=== PATIENT | male | born 1975 | race Caucasian/White ===

== ENCOUNTER → 2017-02-22 | Outpatient (CLI) | payer BC ==
--- NOTE | 2017-02-25 14:58 | SLEEPHOME ---
DATE OF PROCEDURE: 02/22/2017 ORDERED BY: Katalina Graves NP Diagnostic home sleep testing was performed due to concern for the obstructive sleep apnea syndrome. For testing, a NOX-T3 respiratory monitoring device was used. Continuous record was made of pulse, oxygen saturation, airflow, chest and abdominal strain, and body position. 6 hours and 11 minutes of data were reviewed. Of these, 6 hours and 6 minutes were marked as time in bed. During the interval marked time in bed, there were 55 respiratory events identified of 10 seconds in duration or greater for a respiratory event index of 9.0. The events were primarily obstructive. Baseline oxygen saturation 93%, lowest oxygen saturation 87%. Pulse rate averaged 56 beats per minute. Pulse rate ranged 46 to 110. Testing was performed in both the supine and non-supine positions. IMPRESSION: Abnormal home sleep testing with repetitive respiratory events and oxygen desaturations to 87% with a respiratory event index of 9 is consistent with the obstructive sleep apnea syndrome. RECOMMENDATION: The patient should be encouraged to undergo formal sleep evaluation with in laboratory pressure titration.
== END ==
LOC: M SLEEP HO 02-15 09:18
PROVIDERS: ATTEND Nurse Practitioner Adult Health
DX: G47.30 Sleep apnea, unspecified (principal)

== ENCOUNTER → 2017-03-01 | Outpatient (REF) | payer BC | LOC: M SFHCPLAZ 08:21 | PROVIDERS: ATTEND Family Medicine | DX: G47.30 Sleep apnea, unspecified (principal); E66.9 Obesity, unspecified; R63.5 Abnormal weight gain ==

== ENCOUNTER → 2017-06-20 | Outpatient (REF) | payer BC ==
[2017-06-20 11:04] LABS: ALBUMIN 3.7 GM/DL (3.2-5.2); ALBUMIN/GLOBULIN RATIO 0.93 (1.00-1.93); ALKALINE PHOSPHATASE 58 U/L (45-117); ALT/SGPT 41 U/L (12-78); ANION GAP 7 MEQ/L (8-16); AST/SGOT 26 U/L (15-37); BILIRUBIN,TOTAL 0.5 MG/DL (0.2-1.0); BLOOD UREA NITROGEN 18 MG/DL (7-18); CARBON DIOXIDE LEVEL 28 MEQ/L (21-32); CHLORIDE LEVEL 107 MEQ/L (98-107); CHOLESTEROL LEVEL 203 MG/DL (<200); CREATININE FOR GFR 0.99 MG/DL (0.70-1.30); FREE T4 0.91 NG/DL (0.76-1.46); GLOMERULAR FILTRATION RATE > 60.0 (>60); GLUCOSE, FASTING 97 MG/DL (70-105); POTASSIUM SERUM 4.4 MEQ/L (3.5-5.1); SODIUM LEVEL 142 MEQ/L (136-145); TOTAL PROTEIN 7.7 GM/DL (6.4-8.2); TRIGLYCERIDES LEVEL 237 MG/DL (<150)
== END ==
LOC: M SFHCPLAZ 08:06
PROVIDERS: ATTEND Family Medicine
DX: E66.9 Obesity, unspecified (principal); R63.5 Abnormal weight gain

== ENCOUNTER → 2017-08-14 | Outpatient (REF) | payer BC ==
[2017-08-14 13:24] LABS: PERCENT SATURATION 40.1 % (19.7-50.0)
== END ==
LOC: M SFHCPLAZ 12:05
PROVIDERS: ATTEND Family Medicine
DX: R79.89 Other specified abnormal findings of blood chemistry (principal); R53.82 Chronic fatigue, unspecified; R00.0 Tachycardia, unspecified

== ENCOUNTER → 2017-08-27 | Outpatient (REF) | payer BC ==
[2017-08-27 21:17] LABS: BASO # 0.1 10^3/uL (0.0-0.2); BASO % 0.8 % (0.0-1.0); EOS # 0.2 10^3/uL (0.0-0.50); EOS % 1.7 % (0.0-3.0); IMMATURE GRANULOCYTE % 0.2 % (0-0); MEAN CORPUSCULAR HEMOGLOBIN 29.1 pg (27.0-33.0); MEAN CORPUSCULAR HGB CONC 34.5 g/dl (32.0-36.5); MEAN CORPUSCULAR VOLUME 84.4 fl (80.0-96.0); MONO # 0.8 10^3/uL (0.0-0.8); MONO % 8.8 % (0.0-5.0); NEUTROPHILS # 3.6 10^3/uL (1.8-7.7); NEUTROPHILS % 41.5 % (36.0-66.0); PLATELET COUNT, AUTOMATED 311 10^3/uL (150-450); RED CELL DISTRIBUTION WIDTH 12.7 % (11.5-14.5); WHITE BLOOD COUNT 8.6 10^3/uL (4.0-10.0)
[2017-08-27 21:34] LABS: ALBUMIN 4.1 GM/DL (3.2-5.2); ALBUMIN/GLOBULIN RATIO 0.93 (1.00-1.93); ALKALINE PHOSPHATASE 61 U/L (45-117); ALT/SGPT 54 U/L (12-78); ANION GAP 9 MEQ/L (8-16); AST/SGOT 31 U/L (7-37); BILIRUBIN,TOTAL 0.5 MG/DL (0.2-1.0); BLOOD UREA NITROGEN 14 MG/DL (7-18); CALCIUM LEVEL 8.9 MG/DL (8.5-10.1); CARBON DIOXIDE LEVEL 27 MEQ/L (21-32); CHLORIDE LEVEL 105 MEQ/L (98-107); CREATININE FOR GFR 0.94 MG/DL (0.70-1.30); GLOMERULAR FILTRATION RATE > 60.0 (>60); GLUCOSE, FASTING 86 MG/DL (70-105); POTASSIUM SERUM 4.4 MEQ/L (3.5-5.1); SODIUM LEVEL 141 MEQ/L (136-145); TOTAL PROTEIN 8.5 GM/DL (6.4-8.2)
== END ==
LOC: M SFHCLERA 19:18
PROVIDERS: ATTEND Dermatology
DX: L40.0 Psoriasis vulgaris (principal)

== ENCOUNTER → 2017-08-29 | Outpatient (REF) | payer BC ==
[2017-08-29 11:04] LABS: FREE T4 0.88 NG/DL (0.76-1.46)
[2017-08-30 12:23] LABS: ALBUMIN % 54.9 % (55.8-66.1); GAMMA GLOBULIN % 18.6 % (11.1-18.8)
[2017-08-30 12:25] LABS: ALBUMIN 4.39 GM/DL (3.29-5.55)
== END ==
LOC: M SFHCPLAZ 09:00
PROVIDERS: ATTEND Family Medicine
DX: R53.82 Chronic fatigue, unspecified (principal)

== ENCOUNTER → 2017-09-13 | Outpatient (REF) | payer BC | LOC: M LAB REF 16:12 | DX: J02.9 Acute pharyngitis, unspecified (principal) | CPT/HCPCS: 87081 ==

== ENCOUNTER → 2017-11-01 | Outpatient (REF) | payer BC | LOC: M SFHCPLAZ 13:15 | DX: R53.82 Chronic fatigue, unspecified (principal) ==

== ENCOUNTER → 2017-11-02 | Outpatient (REF) | payer BC ==
[2017-11-02 12:40] LABS: CORTISOL AM 5.6 UG/DL (4.3-22.4)
[2017-11-02 12:51] LABS: TOTAL PROTEIN 7.6 GM/DL (6.4-8.2)
[2017-11-06 10:25] LABS: ALBUMIN % 55.3 % (55.8-66.1); ALPHA-1-GLOBULIN % 3.6 % (2.9-4.9); ALPHA-1-GLOBULINS 0.27 GM/DL (0.17-0.41); ALPHA-2-GLOBULINS % 8.7 % (7.1-11.8); BETA-1-GLOBULINS % 6.2 % (4.7-7.2); BETA-2-GLOBULINS % 7.9 % (3.2-6.5); GAMMA GLOBULIN % 18.3 % (11.1-18.8)
[2017-11-06 10:26] LABS: ALPHA-2-GLOBULINS 0.66 GM/DL (0.42-0.99); BETA-1-GLOBULINS 0.47 GM/DL (0.28-0.60); GAMMA GLOBULINS 1.39 GM/DL (0.65-1.58)
== END ==
LOC: M SFHCPLAZ 09:56
DX: R53.82 Chronic fatigue, unspecified (principal)
CPT/HCPCS: 84165

== ENCOUNTER → 2017-11-08 | Outpatient (CLI) | payer BC | LOC: M RAD 08:16 | DX: K40.90 Unilateral inguinal hernia, without obstruction or gangrene, not specified as recurrent (principal); N50.3 Cyst of epididymis | CPT/HCPCS: 76870 ==

== ENCOUNTER → 2017-11-21 | Outpatient (REF) | payer BC ==
[2017-11-21 13:02] LABS: TOTAL PROTEIN,RANDOM URINE 24.6 MG/DL (0.0-12.0)
== END ==
LOC: M SFHCPLAZ 11:58
DX: R53.82 Chronic fatigue, unspecified (principal)
CPT/HCPCS: 86335

== ENCOUNTER → 2017-11-21 | Outpatient (REF) | payer BC | LOC: M SFHCPLAZ 08:46 | DX: N39.0 Urinary tract infection, site not specified (principal) ==

== ENCOUNTER → 2017-12-05 | Outpatient (REF) | payer BC | LOC: M SFHCPLAZ 09:30 | DX: N39.0 Urinary tract infection, site not specified (principal); Z53.9 Procedure and treatment not carried out, unspecified reason ==

== ENCOUNTER → 2017-12-05 | Outpatient (REF) | payer BC | LOC: M SFHCPLAZ 11:23 | DX: R53.82 Chronic fatigue, unspecified (principal) | CPT/HCPCS: 36415; 86334 ==

== ENCOUNTER → 2018-04-10 | Outpatient (REF) | payer BC ==
[2018-04-10 20:13] LABS: BASO # 0.1 10^3/uL (0.0-0.2); BASO % 0.6 % (0.0-1.0); EOS # 0.2 10^3/uL (0.0-0.50); HEMATOCRIT 42.3 % (42.0-52.0); IMMATURE GRANULOCYTE % 0.4 % (0-3.0); LYMPH # 2.8 10^3/uL (1.5-4.5); LYMPH % 35.4 % (24.0-44.0); MEAN CORPUSCULAR HEMOGLOBIN 29.9 pg (27.0-33.0); MEAN CORPUSCULAR HGB CONC 35.5 g/dl (32.0-36.5); MEAN CORPUSCULAR VOLUME 84.3 fl (80.0-96.0); MONO # 0.8 10^3/uL (0.0-0.8); MONO % 10.5 % (0.0-5.0); NEUTROPHILS # 4.1 10^3/uL (1.8-7.7); NEUTROPHILS % 51.1 % (36.0-66.0); PLATELET COUNT, AUTOMATED 294 10^3/uL (150-450); RED BLOOD COUNT 5.02 10^6/uL (4.30-6.10); RED CELL DISTRIBUTION WIDTH 12.5 % (11.5-14.5)
[2018-04-10 20:30] LABS: ALBUMIN 3.7 GM/DL (3.2-5.2); ALBUMIN/GLOBULIN RATIO 0.88 (1.00-1.93); ALKALINE PHOSPHATASE 66 U/L (45-117); ALT/SGPT 58 U/L (12-78); ANION GAP 8 MEQ/L (8-16); AST/SGOT 35 U/L (7-37); BILIRUBIN,TOTAL 0.4 MG/DL (0.2-1.0); BLOOD UREA NITROGEN 15 MG/DL (7-18); CALCIUM LEVEL 8.6 MG/DL (8.5-10.1); CARBON DIOXIDE LEVEL 26 MEQ/L (21-32); CHLORIDE LEVEL 108 MEQ/L (98-107); CREATININE FOR GFR 0.98 MG/DL (0.70-1.30); GLOMERULAR FILTRATION RATE > 60.0 (>60); GLUCOSE, FASTING 102 MG/DL (70-100); POTASSIUM SERUM 4.1 MEQ/L (3.5-5.1); SODIUM LEVEL 142 MEQ/L (136-145); TOTAL PROTEIN 7.9 GM/DL (6.4-8.2)
== END ==
LOC: M SFHCLERA 16:06
DX: L40.0 Psoriasis vulgaris (principal)

== ENCOUNTER → 2018-09-24 | Outpatient (REF) | payer BC | LOC: M LAB REF 11:54 | PROVIDERS: ATTEND Physician Assistant | DX: J02.9 Acute pharyngitis, unspecified (principal) ==

== ENCOUNTER → 2018-10-28 | Outpatient (REF) | payer BC ==
[2018-10-28 19:43] LABS: INFLUENZA A AMPLIFICATION POSITIVE (NEGATIVE); INFLUENZA B AMPLIFICATION NEGATIVE (NEGATIVE)
== END ==
LOC: M LAB REF 18:54
PROVIDERS: ATTEND Physician Assistant Medical
DX: J11.1 Influenza due to unidentified influenza virus with other respiratory manifestations (principal)

== ENCOUNTER 2018-11-04 13:32 | Day surgery (SDC) | payer BC ==
[~2018-11-04] VITALS: Ht 172.7 cm; Wt 117.9 kg
[2018-11-04] MEDS ORDERED: ROPIvacaine 0.5% 30 ML INJECTION (J2795 PER 1MG) ONE (13:33)
[2018-11-04] MEDS ORDERED: LIDOCAINE 1% MDV 20ML VIAL ONE (13:33)
[2018-11-04] MEDS ORDERED: dexameTHASONE 10 MG/1 ML VIAL PRES.FREE (J1100) ONE (13:33)
[2018-11-04] MEDS ORDERED: EPINEPHrine INJ 1 MG/ML 1ML AMP As Ordered ONE (13:35)
[2018-11-04] MEDS ORDERED: LIDOCAINE 1% MDV 20ML VIAL As Ordered ONE (13:35)
[2018-11-04] MEDS ORDERED: ceFAZolin 2 GM/D5W 50 ML IV BAG (J0690 PER 500MG) As Ordered ONE (13:54)
[2018-11-04] MEDS ORDERED: LR 1,000 ML IV ONE (14:00)
[2018-11-04] MEDS ORDERED: PROT20TA11 PO (14:17)
[2018-11-04] MEDS ORDERED: HUMERA (14:17)
[2018-11-04] MEDS ORDERED: LORA0.5T11 PO (14:17)
[2018-11-04] MEDS ORDERED: PROPOFOL 200 MG/20 ML VIAL As Ordered ONE ×2 (14:23→16:33)
[2018-11-04] MEDS ORDERED: ONDANSETRON 4MG/2ML VIAL (J2405) As Ordered ONE ×2 (14:23→16:58)
[2018-11-04] MEDS ORDERED: dexameTHASONE 4 MG/ML 1ML VIAL (J1100) As Ordered ONE (14:23)
[2018-11-04] MEDS ORDERED: LIDOCAINE 2% INJ 100 MG/5 ML SDV (FOR ANES.) As Ordered ONE (14:23)
[2018-11-04] MEDS ORDERED: fentaNYL 250 MCG/5 ML INJECTION (J3010) As Ordered ONE (14:23)
[2018-11-04] MEDS ORDERED: MIDAZOLAM INJ 2 MG/2 ML VIAL (J2250) As Ordered ONE ×3 (14:24→15:17)
[2018-11-04] MEDS ORDERED: ROCURONIUM BROMIDE 50 MG/5 ML VIAL As Ordered ONE ×2 (14:26→17:12)
[2018-11-04] MEDS ORDERED: fentaNYL 100 MCG/2 ML INJECTION (J3010) As Ordered ONE (14:47)
[2018-11-04] MEDS: fentaNYL 100 MCG/2 ML INJECTION (J3010) IV SCH ×2 (15:13→15:15)
[2018-11-04] MEDS: MIDAZOLAM INJ 2 MG/2 ML VIAL (J2250) IV SCH ×2 (15:14→15:15)
[2018-11-04] MEDS ORDERED: MIDAZOLAM INJ 2 MG/2 ML VIAL (J2250) IV ONE (15:45)
[2018-11-04] MEDS ORDERED: PHENYLephrine HCL 500 MCG/5 ML (100MCG/ML) SYRINGE (J2370) As Ordered ONE (15:56)
[2018-11-04] MEDS ORDERED: KETOROLAC 60 MG/2 ML VIAL (J1885) As Ordered ONE (16:52)
[2018-11-04] MEDS ORDERED: NEOSTIGMINE 10 MG/10 ML VIAL (J2710) As Ordered ONE (16:52)
[2018-11-04] MEDS ORDERED: GLYCOPYRROLATE INJ 0.2 MG/ML 2 ML VIAL As Ordered ONE (16:52)
[2018-11-04] MEDS ORDERED: HYDROmorphone HCL 2 MG/ML 1ML VIAL (J1170) As Ordered ONE (16:53)
[2018-11-04] MEDS ORDERED: ESMOLOL INJ 100MG/10ML VIAL As Ordered ONE (17:32)
[2018-11-04] MEDS ORDERED: METOPROLOL 5 MG/5 ML VIAL As Ordered ONE (18:18)
[2018-11-04] MEDS: fentaNYL 100 MCG/2 ML INJECTION (J3010) IV PRN ×3 (19:50→20:08)
[2018-11-04] MEDS ORDERED: HYDROMORPHONE HCL 0.5 MG/ 0.5 ML SYRINGE (J1170 PER 1) As Ordered ONE ×2 (20:13→20:46)
[2018-11-04] MEDS: HYDROMORPHONE HCL 0.5 MG/ 0.5 ML SYRINGE (J1170 PER 1) IV PRN ×7 (20:14→21:14)
[2018-11-04] MEDS ORDERED: LR 1,000 ML IV SCH ×2 (20:15)
[2018-11-04] MEDS ORDERED: ONDANSETRON 4MG/2ML VIAL (J2405) IV PRN (20:15)
[2018-11-04] MEDS: PERCOCET 5MG/325MG TAB PO PRN ×2 (20:34→21:32)
[2018-11-04] MEDS ORDERED: diphenhydrAMINE INJ 50MG/ML VIAL (J1200) As Ordered ONE (20:41)
[2018-11-04] MEDS ORDERED: diphenhydrAMINE INJ 50MG/ML VIAL (J1200) IV SCH (21:00)
[2018-11-04] MEDS ORDERED: METOCLOPRAMIDE INJ 10MG/2ML VIAL (J2765) As Ordered ONE (21:07)
[2018-11-04] MEDS ORDERED: METOCLOPRAMIDE INJ 10MG/2ML VIAL (J2765) IV SCH (21:15)
[2018-11-04] MEDS ORDERED: PERCOCET 5MG/325MG TAB As Ordered ONE (21:30)
[2018-11-04] MEDS ORDERED: oxyCODONE 5MG TAB PO PRN (22:30)
[2018-11-04] MEDS ORDERED: MORPHINE 4 MG/ML 1ML VIAL/SYRINGE (J2270) IV PRN (22:30)
[2018-11-04 23:00] VITALS: BP 168/98
[2018-11-04 23:30] VITALS: BP 176/104
[2018-11-05 00:03] VITALS: O2SAT 91
[2018-11-05 00:30] VITALS: BP 173/102
--- NOTE | 2018-11-05 01:14 | REP ---
Clinical: Hypoxia and desaturations. . Comparison: 02/22/2012 . Findings: The mediastinum and cardiac silhouette are stable and within normal limits for portable technique. The lung saba are clear without acute consolidation, effusion, or pneumothorax. Skeletal structures are intact. Impression: No acute cardiopulmonary process appreciated. Electronically Signed by Giovanni Landon MD 11/05/2018 01:06 A
[2018-11-05] MEDS ORDERED: KETOROLAC 30 MG/ML VIAL (J1885) IV PRN (01:15)
[2018-11-05 01:30] VITALS: BP 160/100
[2018-11-05 02:00] VITALS: BP 168/101
[2018-11-05] MEDS: oxyCODONE 5MG TAB PO PRN ×2 (05:45→10:13)
[2018-11-05 06:00] VITALS: BP 149/71
[2018-11-05] MEDS ORDERED: LR 1,000 ML IV ONE (06:00)
--- NOTE | 2018-11-05 20:44 | RO ---
DATE OF PROCEDURE: 11/04/2018 PREOPERATIVE DIAGNOSES: 1. Right shoulder massive rotator cuff tear. 2. Right shoulder possible superior labral tear. 3. Right shoulder impingement. POSTOPERATIVE DIAGNOSES: 1. Right shoulder massive rotator cuff tear. 2. Right type 2 SLAP tear with degenerative anterior labral tearing. 3. Right shoulder arthritis. 4. Right shoulder impingement. PROCEDURES: 1. Right shoulder arthroscopic rotator cuff repair. 2. Right shoulder open subpectoral biceps tenodesis. 3. Right shoulder arthroscopic chondroplasty, labral debridement and subacromial decompression. SURGEON: Dr. Deion Alaniz HEALTH SERVICES ADMINISTRATOR: PAULINA Cortés ANESTHESIA: General with preoperative nerve block. IV FLUIDS: Lactated Ringer's. ESTIMATED BLOOD LOSS: 10 mL. IMPLANTS: Arthrex 4.75 mm PEEK SwiveLock anchor times five and Arthrex proximal biceps button times one. CLOSURE: Nylon and Monocryl. DESCRIPTION OF PROCEDURE: The patient was identified in preoperative holding area. The right shoulder was marked by myself. The patient had maintained active forward flexion 130 degrees. He had a preoperative nerve block with anesthesia. He was then brought to the operating room, placed supine on a well-padded operating room (OR) table. General anesthesia was induced. Exam under anesthesia revealed 180 degrees of forward flexion, 90 of external rotation with the arm at his side. No increased anterior-posterior translation. He was placed into the left side down lateral decubitus position with an axillary roll, all bony prominences well padded, and he had bilateral Venodyne boots for deep vein thrombosis (DVT) prophylaxis. He received appropriate IV antibiotics within 1 hour of incision. The right arm was placed into the Arthrex STaR Sleeve lateral decubitus traction device with 10 pounds of traction. The right shoulder was then prepped and draped in the normal sterile fashion with Chloraprep. Prior to incision, time-out was performed per hospital protocol. The right shoulder was insufflated with lactated Ringer's. Standard posterior viewing portal made with #11 blade. 30-degree arthroscope was introduced into the joint and diagnostic arthroscopy revealed grade 2 chondromalacia in the glenoid and humeral head diffusely. There was tearing of both the anterior and superior labrum. The subscapularis appeared intact. The teres minor was intact. There was a full thickness tear of the supraspinatus extending into the infraspinatus. This was significantly retracted. An anterior working portal was established through the rotator interval and on probing of the superior labrum, there was an unstable type 2 SLAP tear. The entire superior labrum was lifted off of the glenoid and the anchor was unstable. I performed a labral debridement of both the anterior and superior labrum with the shaver and a chondroplasty with the shaver. I then performed a tenotomy of the long head of the biceps with a meniscal punch. The subscapularis was carefully inspected. There was some tendinopathy in the very upper border. However, I did not appreciate any tearing, and there was no lift off from the lesser tuberosity doing the posterior lever push maneuver. I then proceeded with an open subpectoral biceps tenodesis. Raquel Potts was present for the entire procedure including patient positioning and draping, holding the arthroscope, holding retractors, assisting with the whipstitch, placement of anchors and retrieving sutures. Incision made with a #15 blade just lateral to the axilla. Dissection down to the biceps fascia which was opened carefully with Metzenbaum scissors. Long head of the biceps tendon was identified and retrieved with a right angle clamp. A running locking whipstitch placed with the FiberLoop starting at the muscle tendon junction and extending proximally. Sutures then loaded through the biceps button per routine. Cautery used to terrence the proposed drill hole site, and the sutures approximated to the cautery terrence and this was found to nicely restore the resting tension. A unicortical drill hole was made with a spade tip drill bit just proximal to lower edge of the pec major tendon within the bicipital groove. Irrigation to remove bony debris. Button was placed through the drill hole, sutures were tensioned which flipped the button and then docked the tendon against the bicipital groove nicely. Curved-free needle was used to pass one limb of suture back through the tendon to lock the construct in place. Knots were tied by hand. This nicely restored the resting tension. I then extensively irrigated the incision, closed with #2-0 Vicryl for deeper fascial closure, then #2-0 Vicryl, running, #3-0 Monocryl. Steri-Strips placed at the end of the case. The arthroscope was placed back into the joint, again reinspected the subscapularis. No tearing. No lift off. No repair indicated. With the arthroscope in the subacromial space, there was then appreciated the massive tear. The entire supraspinatus and anterior infraspinatus had torn off and retracted. The supraspinatus was retracted medial to the glenoid. With the lateral working portal established, shaver and cautery used to clear soft tissue off of the greater tuberosity. Curette used to create a bleeding surface. A traction stitch was placed, a #2 FiberWire with the Scorpion and as my contact center assistant held traction, the cautery and shaver then used to perform releases superior and inferior to the tendon. Switching stick was also passed inferior to the tendon for further release. The posterior portion of the tear was reduced nicely to the tuberosity. Anteriorly, it would not reach lateral to the articular cartilage. I performed a modified anterior interval release with the radiofrequency cautery, which significantly improved the excursion and this would not reach over to the footprint. The cuff grasper was used to reduce the tendon to the tuberosity to determine the appropriate placement for anchors. Bursectomy was performed with shaver and cautery. Then, placed a total of three 4.75 mm PEEK SwiveLock anchors, all preloaded with tape. The posterior anchor was placed first just off the articular surface, that was passed with the Scorpion through the far posterior portion of the tear. The middle anchor was then placed, the sutures were cut and so they were passed individually in a horizontal mattress fashion. A third SwiveLock anchor was placed in the anterior portion of the tuberosity; those were also passed in a horizontal mattress fashion. The far posterior sutures, traction suture and one of the middle tapes were then brought out the lateral portal through a cannula. They were placed through a 4.75 mm PEEK SwiveLock anchor, and the cannula was used to ensure there was enough lateral excursion on the tendon and to determine the appropriate position. Punch used to create a socket in the greater tuberosity. The sutures were tensioned, anchor was docked and then inserted by hand with excellent fixation. This nicely restored the posterior half of the rotator cuff tear. The shoulder was internally and externally rotated and now the cuff moved nicely with the humeral head. Next, the far anterior tape sutures, one of the central tape sutures and an additional FiberWire suture that I placed with the Scorpion were then brought out the lateral portal, placed through another 4.75 mm PEEK SwiveLock anchor, a socket was created, the anchor was docked, sutures tensioned. [place] inserted by hand with excellent fixation. This nicely restored the anterior portion of the tear. The far anterior portion of the supraspinatus did reach over to the greater tuberosity, so that the humeral head was covered. However, there was not a significant amount of lateral excursion beyond that. The shoulder was internally and externally rotated, the tendon moved nicely as a unit with the humeral head. There was no exposed articular cartilage. Shoulder was irrigated and drained. Portals closed with nylon suture. Bulky sterile dressing applied. The patient was carefully placed into the sling, extubated, transferred to the post-anesthesia care unit (PACU) in stable condition.
== END 2018-11-05 11:20 | disposition home or self-care (01) ==
LOC: M SDC 13:32 → M MS5PR 23:20 → M SDC 11-05 11:20
PROVIDERS: ATTEND Orthopaedic Surgery
DX: M75.121 Complete rotator cuff tear or rupture of right shoulder, not specified as traumatic (principal); S43.431A Superior glenoid labrum lesion of right shoulder, initial encounter; M19.011 Primary osteoarthritis, right shoulder; M75.41 Impingement syndrome of right shoulder; F41.9 Anxiety disorder, unspecified; K21.9 Gastro-esophageal reflux disease without esophagitis; G47.33 Obstructive sleep apnea (adult) (pediatric); Z88.1 Allergy status to other antibiotic agents; X58.XXXA Exposure to other specified factors, initial encounter; Y93.9 Activity, unspecified; Y92.9 Unspecified place or not applicable; Y99.9 Unspecified external cause status
CPT/HCPCS: 23430; 29826; 29827; 71045; 88304; C1713; J0690; J1100; J1170; J1200; J1885; J2250; J2370; J2405; J2710; J2765; J2795; J3010

== ENCOUNTER → 2019-01-06 | Outpatient (CLI) | payer BC ==
[~2019-01-06] MED LIST: HUMERA; LORA0.5T11 PO; PROT20TA11 PO
[2019-01-06 17:17] LABS: BASO # 0.1 10^3/uL (0.0-0.2); BASO % 0.6 % (0.0-1.0); EOS # 0.2 10^3/uL (0.0-0.50); EOS % 2.2 % (0.0-3.0); HEMATOCRIT 46.7 % (42.0-52.0); HEMOGLOBIN 15.6 g/dl (13.5-17.5); LYMPH # 3.5 10^3/uL (1.5-4.5); LYMPH % 44.8 % (24.0-44.0); MEAN CORPUSCULAR HEMOGLOBIN 29.1 pg (27.0-33.0); MEAN CORPUSCULAR HGB CONC 33.4 g/dl (32.0-36.5); MONO # 0.7 10^3/uL (0.0-0.8); MONO % 8.7 % (0.0-5.0); NEUTROPHILS # 3.4 10^3/uL (1.8-7.7); NEUTROPHILS % 43.6 % (36.0-66.0); PLATELET COUNT, AUTOMATED 305 10^3/uL (150-450); RED BLOOD COUNT 5.37 10^6/uL (4.30-6.10); WHITE BLOOD COUNT 7.8 10^3/uL (4.0-10.0)
[2019-01-06 17:22] LABS: ALT/SGPT 55 U/L (12-78); BILIRUBIN,TOTAL 0.4 MG/DL (0.2-1.0); BLOOD UREA NITROGEN 12 MG/DL (7-18); CALCIUM LEVEL 9.1 MG/DL (8.5-10.1); CARBON DIOXIDE LEVEL 28 MEQ/L (21-32); CHLORIDE LEVEL 107 MEQ/L (98-107); CHOLESTEROL LEVEL 222 MG/DL (<200); CHOLESTEROL RISK RATIO 4.826 (<5); CREATININE FOR GFR 0.95 MG/DL (0.70-1.30); GLOMERULAR FILTRATION RATE > 60.0 (>60); GLUCOSE, FASTING 103 MG/DL (70-100); HDL CHOLESTEROL 46 MG/DL (>40); LDL CHOLESTEROL 109 MG/DL (<100); NON-HDL-C 176 MG/DL; POTASSIUM SERUM 3.8 MEQ/L (3.5-5.1); SODIUM LEVEL 140 MEQ/L (136-145); TOTAL PROTEIN 8.1 GM/DL (6.4-8.2); TRIGLYCERIDES LEVEL 335 MG/DL (<150)
[2019-01-06 17:45] LABS: HEMOGLOBIN A1c 5.9 %
== END ==
LOC: M WUC 12:47
PROVIDERS: ATTEND Family Medicine
DX: Z13.1 Encounter for screening for diabetes mellitus (principal); E78.5 Hyperlipidemia, unspecified; L40.9 Psoriasis, unspecified; F10.19 Alcohol abuse with unspecified alcohol-induced disorder

== ENCOUNTER → 2019-11-10 | Outpatient (REF) | payer OTHER ==
[~2019-11-10] MED LIST changes: +ALBU8.5H; +AUGM875T28 PO; +HUMI40KI2; -LORA0.5T11 PO; +LORA0.5T5 PO; +NAPR-837 PO
[2019-11-10 18:17] LABS: APPEARANCE, URINE CLEAR (CLEAR); BACTERIA, URINE AUTO NEGATIVE (NEGATIVE); BILIRUBIN, URINE AUTO NEGATIVE (NEGATIVE); BLOOD, URINE BLOOD NEGATIVE (NEGATIVE); COLOR, URINE YELLOW (YELLOW); GLUCOSE, URINE (UA) AUTO NEGATIVE (NEGATIVE); KETONE, URINE AUTO TRACE mg/dL (NEGATIVE); LEUKOCYTE ESTERASE, URINE AUTO NEGATIVE (NEGATIVE); MUCUS, URINE SMALL (NEGATIVE); NITRITE, URINE AUTO NEGATIVE (NEGATIVE); PROTEIN, URINE AUTO NEGATIVE (NEGATIVE); RBC, URINE AUTO 3 /HPF (0-3); SQUAMOUS EPITHELIAL CELL UR AU 0 /HPF (0-6); UROBILINOGEN, URINE AUTO 0.2 mg/dL (0.0-2.0); WBC, URINE AUTO 1 /HPF (0-3)
[2019-11-10 18:27] LABS: HEMOGLOBIN A1c 5.6 %
[2019-11-10 18:29] LABS: MALB URINE SIEMENS 9.4 MG/L; MAU/CREAT RATIO 6.4 MCG/MG (0.0-30.0)
[2019-11-10 18:36] LABS: ALBUMIN 4.1 GM/DL (3.2-5.2); ALT/SGPT 37 U/L (12-78); BILIRUBIN,TOTAL 0.5 MG/DL (0.2-1.0); BLOOD UREA NITROGEN 14 MG/DL (7-18); CALCIUM LEVEL 9.4 MG/DL (8.5-10.1); CARBON DIOXIDE LEVEL 28 MEQ/L (21-32); CHLORIDE LEVEL 104 MEQ/L (98-107); CHOLESTEROL LEVEL 216 MG/DL (<200); CHOLESTEROL RISK RATIO 4.153 (<5); CREATININE FOR GFR 0.93 MG/DL (0.70-1.30); GLOMERULAR FILTRATION RATE > 60.0 (>60); GLUCOSE, FASTING 81 MG/DL (70-100); HDL CHOLESTEROL 52 MG/DL (>40); LDL CHOLESTEROL 134 MG/DL (<100); NON-HDL-C 164 MG/DL; POTASSIUM SERUM 4.1 MEQ/L (3.5-5.1); SODIUM LEVEL 139 MEQ/L (136-145); TOTAL PROTEIN 8.5 GM/DL (6.4-8.2); TRIGLYCERIDES LEVEL 150 MG/DL (<150)
== END ==
LOC: M SFHCPLAZ 14:43
PROVIDERS: ATTEND Family Medicine
DX: F10.19 Alcohol abuse with unspecified alcohol-induced disorder (principal); I10 Essential (primary) hypertension; R73.03 Prediabetes

== ENCOUNTER → 2019-11-27 | Outpatient (REF) | payer OTHER, SELFPAY ==
[2019-11-27 17:57] LABS: FREE T4 1.1 NG/DL (0.76-1.46); THYROID STIMULATING HORMONE 1.65 uIU/ML (0.358-3.740)
== END ==
LOC: M SFHCPLAZ 14:37
DX: F41.9 Anxiety disorder, unspecified (principal)

== ENCOUNTER → 2019-12-02 | Outpatient (CLI) | payer OTHER, SELFPAY ==
--- NOTE | 2019-12-02 07:46 | REP ---
Clinical: Fatty liver. Technique: Real time caraballo scale ultrasound examination using curved array transducer. Findings: Liver is increased echogenicity with poor through transmission suggesting fatty infiltration. No obvious focal hepatic lesion identified. The pancreas is incompletely evaluated due to interposed bowel gas and poor through transmission. Gallbladder demonstrates mobile gallstones without wall thickening or pericholecystic fluid. No obvious biliary ductal dilatation is appreciated although the common bile duct is not identified. The right kidney is normal in reniform shape without hydronephrosis and measures 11.8 x 5.0 x 5.3 cm. No ascites in the visualized right upper quadrant. Impression: 1. Hepatic steatosis. No obvious focal hepatic lesion. 2. Cholelithiasis without evidence for acute cholecystitis. Electronically Signed by Giovanni Landon MD 12/02/2019 07:38 A
== END ==
LOC: M RAD 07:09
PROVIDERS: ATTEND Student in an Organized Health Care Education/Training Program
DX: K76.0 Fatty (change of) liver, not elsewhere classified (principal); K80.20 Calculus of gallbladder without cholecystitis without obstruction

== ENCOUNTER → 2020-10-07 | Outpatient (CLI) | payer OTHER ==
[2020-10-07 13:13] LABS: HEMATOCRIT 49.4 % (42.0-52.0); HEMOGLOBIN 16.7 g/dl (13.5-17.5); MEAN CORPUSCULAR HEMOGLOBIN 28.4 pg (27.0-33.0); MEAN CORPUSCULAR HGB CONC 33.8 g/dl (32.0-36.5); PLATELET COUNT, AUTOMATED 342 10^3/uL (150-450); RED BLOOD COUNT 5.88 10^6/uL (4.30-6.10); WHITE BLOOD COUNT 9.8 10^3/uL (4.0-10.0)
--- NOTE | 2020-10-07 13:33 | REP ---
INDICATION: HTN,FATIGUE, LAB 1ST EKG 2ND XR 3RD. COMPARISON: Comparison chest x-ray November 04, 2018. TECHNIQUE: Two views.. FINDINGS: The lungs are well inflated and free of infiltrate. The pleural angles are sharp. The heart size is normal. Pulmonary vasculature is not increased. No significant bony abnormality is seen. IMPRESSION: Negative chest x-ray. <Electronically signed by Ger Lara > 10/07/20 [id number]
--- NOTE | 2020-10-07 13:46 | ECGEPIP ---
[facility] Test Date: 2020-10-07 Pat Name: TOBIAS GALARZA Department: Room: - Gender: Male Supervisor [employer]: : 1975 Requested By: John Ghosh Order Number: [id number] Reading MD: Thu Jack Measurements Intervals [place] Rate: 98 P: 59 NE: 138 QRS: 11 QRSD: 96 T: 29 QT: 333 QTc: 427 Interpretive Statements SINUS RHYTHM WITH MARKED SINUS ARRHYTHMIA NO PRIOR Electronically Signed on 10-07-2020 13:45:28 EST by Thu Jack
[2020-10-07 13:55] LABS: ALBUMIN 4.2 GM/DL (3.2-5.2); ALT/SGPT 66 U/L (12-78); BLOOD UREA NITROGEN 16 MG/DL (7-18); CALCIUM LEVEL 9.9 MG/DL (8.5-10.1); CARBON DIOXIDE LEVEL 27 MEQ/L (21-32); CHLORIDE LEVEL 103 MEQ/L (98-107); CHOLESTEROL LEVEL 236 MG/DL (<200); CHOLESTEROL RISK RATIO 4.538 (<5); CREATININE FOR GFR 1.11 MG/DL (0.70-1.30); GLOMERULAR FILTRATION RATE > 60.0 (>60); GLUCOSE, FASTING 103 MG/DL (70-100); HDL CHOLESTEROL 52 MG/DL (>40); LDL CHOLESTEROL 155 MG/DL (<100); NON-HDL-C 184 MG/DL; POTASSIUM SERUM 4.2 MEQ/L (3.5-5.1); PROSTATIC SPECIFIC AG MONITOR 0.91 NG/ML (< 4.00); SODIUM LEVEL 137 MEQ/L (136-145); TESTOSTERONE 652 NG/DL (241-827); THYROID STIMULATING HORMONE 0.845 uIU/ML (0.358-3.740); TOTAL 25(OH) VITAMIN D 25.5 NG/ML (30.0-100.0); TOTAL PROTEIN 8.5 GM/DL (6.4-8.2); TRIGLYCERIDES LEVEL 147 MG/DL (<150)
[2020-10-07 14:19] LABS: HEMOGLOBIN A1c 5.6 %
== END ==
LOC: M LAB 12:03
PROVIDERS: ATTEND Family Medicine
DX: R53.83 Other fatigue (principal); I10 Essential (primary) hypertension; E03.9 Hypothyroidism, unspecified

== ENCOUNTER → 2021-10-05 | Outpatient (CLI) | payer OTHER ==
[2021-10-05 17:47] LABS: HEMATOCRIT 44.3 % (42.0-52.0); MEAN CORPUSCULAR HEMOGLOBIN 28.4 pg (27.0-33.0); MEAN CORPUSCULAR HGB CONC 33.9 g/dl (32.0-36.5); MEAN CORPUSCULAR VOLUME 83.7 fl (80.0-96.0); PLATELET COUNT, AUTOMATED 342 10^3/uL (150-450); RED BLOOD COUNT 5.29 10^6/uL (4.30-6.10); WHITE BLOOD COUNT 7.6 10^3/uL (4.0-10.0)
[2021-10-05 18:16] LABS: ALBUMIN 3.7 GM/DL (3.2-5.2); ALT/SGPT 36 U/L (12-78); BILIRUBIN,TOTAL 0.4 MG/DL (0.2-1.0); BLOOD UREA NITROGEN 16 MG/DL (7-18); CALCIUM LEVEL 8.6 MG/DL (8.5-10.1); CARBON DIOXIDE LEVEL 28 MEQ/L (21-32); CHLORIDE LEVEL 106 MEQ/L (98-107); CHOLESTEROL LEVEL 184 MG/DL (<200); CREATININE FOR GFR 1.05 MG/DL (0.70-1.30); GLOMERULAR FILTRATION RATE > 60.0 (>60); GLUCOSE, FASTING 103 MG/DL (70-100); HDL CHOLESTEROL 42 MG/DL (>40); LDL CHOLESTEROL 72 MG/DL (<100); NON-HDL-C 142 MG/DL; POTASSIUM SERUM 3.9 MEQ/L (3.5-5.1); PROSTATIC SPECIFIC AG MONITOR 1.12 NG/ML (< 4.00); SODIUM LEVEL 139 MEQ/L (136-145); TESTOSTERONE 497 NG/DL (241-827); TRIGLYCERIDES LEVEL 350 MG/DL (<150)
[2021-10-05 18:39] LABS: HEMOGLOBIN A1c 5.2 %
== END ==
LOC: M PLALAB 14:54
PROVIDERS: ATTEND Family Medicine
DX: I10 Essential (primary) hypertension (principal); R53.83 Other fatigue; E03.9 Hypothyroidism, unspecified

== ENCOUNTER → 2021-12-16 | Outpatient (CLI) | payer OTHER | LOC: M RAD 09:45 | PROVIDERS: ATTEND Family Medicine | DX: I42.9 Cardiomyopathy, unspecified (principal) ==

== ENCOUNTER → 2022-03-30 | Outpatient (CLI) | payer OTHER ==
[2022-03-30 14:56] LABS: HEMATOCRIT 44.6 % (42.0-52.0); HEMOGLOBIN 15.3 g/dl (13.5-17.5); MEAN CORPUSCULAR HEMOGLOBIN 28.6 pg (27.0-33.0); MEAN CORPUSCULAR HGB CONC 34.3 g/dl (32.0-36.5); MEAN CORPUSCULAR VOLUME 83.4 fl (80.0-96.0); PLATELET COUNT, AUTOMATED 301 10^3/uL (150-450); RED BLOOD COUNT 5.35 10^6/uL (4.30-6.10); WHITE BLOOD COUNT 7.9 10^3/uL (4.0-10.0)
[2022-03-30 15:29] LABS: HEMOGLOBIN A1c 5.4 %
[2022-03-30 15:33] LABS: ALT/SGPT 31 U/L (12-78); BILIRUBIN,TOTAL 0.8 MG/DL (0.2-1.0); BLOOD UREA NITROGEN 22 MG/DL (7-18); CALCIUM LEVEL 9.4 MG/DL (8.5-10.1); CARBON DIOXIDE LEVEL 24 MEQ/L (21-32); CHLORIDE LEVEL 108 MEQ/L (98-107); CHOLESTEROL LEVEL 228 MG/DL (<200); CREATININE FOR GFR 1.15 MG/DL (0.70-1.30); GLOMERULAR FILTRATION RATE > 60.0 (>60); GLUCOSE, FASTING 82 MG/DL (70-100); HDL CHOLESTEROL 57 MG/DL (>40); LDL CHOLESTEROL 143 MG/DL (<100); NON-HDL-C 171 MG/DL; PROSTATIC SPECIFIC AG MONITOR 0.56 NG/ML (< 4.00); SODIUM LEVEL 141 MEQ/L (136-145); TRIGLYCERIDES LEVEL 140 MG/DL (<150)
[2022-03-30 15:57] LABS: TESTOSTERONE 309 NG/DL (241-827)
== END ==
LOC: M LAB 14:10
PROVIDERS: ATTEND Family Medicine
DX: I10 Essential (primary) hypertension (principal); R53.83 Other fatigue

== ENCOUNTER → 2022-09-27 | Outpatient (CLI) | payer OTHER ==
[2022-09-27 13:37] LABS: HEMATOCRIT 46.2 % (42.0-52.0); HEMOGLOBIN 16.2 g/dl (13.5-17.5); MEAN CORPUSCULAR HEMOGLOBIN 28.6 pg (27.0-33.0); MEAN CORPUSCULAR HGB CONC 35.1 g/dl (32.0-36.5); MEAN CORPUSCULAR VOLUME 81.5 fl (80.0-96.0); PLATELET COUNT, AUTOMATED 312 10^3/uL (150-450); RED BLOOD COUNT 5.67 10^6/uL (4.30-6.10); WHITE BLOOD COUNT 8.2 10^3/uL (4.0-10.0)
[2022-09-27 14:17] LABS: HEPATITIS B SURFACE ANTIGEN NEGATIVE (NEGATIVE)
[2022-09-27 14:30] LABS: HIV 1&2 SCREEN CENTAUR NEGATIVE (NEGATIVE)
[2022-09-27 14:39] LABS: HEPATITIS B CORE ANTIBODY IGM NEGATIVE (NEGATIVE); HEPATITIS C VIRUS ABY INDEX 0.1 INDEX (<0.8)
[2022-09-27 14:42] LABS: ALBUMIN 4.1 G/DL (3.2-5.2); ALKALINE PHOSPHATASE 74 U/L (46-116); ALT/SGPT 30 U/L (7.0-40); AST/SGOT 31 U/L (<34); BILIRUBIN,TOTAL 0.6 MG/DL (0.3-1.2); BLOOD UREA NITROGEN 25 MG/DL (9-23); CALCIUM LEVEL 9.4 MG/DL (8.5-10.1); CARBON DIOXIDE LEVEL 26 MMOL/L (20-31); CHLORIDE LEVEL 104 MMOL/L (98-107); CREATININE FOR GFR 0.97 MG/DL (0.70-1.30); GLOMERULAR FILTRATION RATE > 60.0 (>60); GLUCOSE, FASTING 94 MG/DL (60-100); POTASSIUM SERUM 4.3 MMOL/L (3.5-5.1); SODIUM LEVEL 140 MMOL/L (136-145); TOTAL PROTEIN 8.1 G/DL (5.7-8.2)
== END ==
LOC: M LAB 12:09
PROVIDERS: ATTEND Nurse Practitioner Family
DX: L40.9 Psoriasis, unspecified (principal)

== ENCOUNTER → 2022-10-05 | Outpatient (CLI) | payer OTHER | LOC: M RAD 10:13 | PROVIDERS: ATTEND Family Medicine | DX: M47.26 Other spondylosis with radiculopathy, lumbar region (principal); M51.16 Intervertebral disc disorders with radiculopathy, lumbar region ==

== ENCOUNTER → 2023-06-07 | Outpatient (CLI) | payer OTHER ==
[2023-06-07 10:42] LABS: APPEARANCE, URINE HAZY (CLEAR); BACTERIA, URINE AUTO NEGATIVE (NEGATIVE); BILIRUBIN, URINE AUTO NEGATIVE (NEGATIVE); BLOOD, URINE BLOOD NEGATIVE (NEGATIVE); COLOR, URINE AMBER (YELLOW); GLUCOSE, URINE (UA) AUTO NEGATIVE (NEGATIVE); KETONE, URINE AUTO TRACE mg/dL (NEGATIVE); LEUKOCYTE ESTERASE, URINE AUTO NEGATIVE (NEGATIVE); MUCUS, URINE SMALL (NEGATIVE); NITRITE, URINE AUTO NEGATIVE (NEGATIVE); PROTEIN, URINE AUTO 1+ mg/dL (NEGATIVE); RBC, URINE AUTO 1 /HPF (0-3); SPECIFIC GRAVITY URINE AUTO 1.031 (1.002-1.035); SQUAMOUS EPITHELIAL CELL UR AU 0 /HPF (0-6); WBC, URINE AUTO 1 /HPF (0-3)
[2023-06-07 10:44] LABS: HEMATOCRIT 46.9 % (42.0-52.0); MEAN CORPUSCULAR HEMOGLOBIN 28.2 pg (27.0-33.0); MEAN CORPUSCULAR HGB CONC 34.1 g/dl (32.0-36.5); MEAN CORPUSCULAR VOLUME 82.6 fl (80.0-96.0); PLATELET COUNT, AUTOMATED 322 10^3/uL (150-450); RED BLOOD COUNT 5.68 10^6/uL (4.30-6.10); WHITE BLOOD COUNT 7.3 10^3/uL (4.0-10.0)
[2023-06-07 10:55] LABS: INR 1.01
[2023-06-07 11:02] LABS: HEMOGLOBIN A1c 5.1 % (4.0-6.0)
[2023-06-07 11:08] LABS: PROSTATIC SPECIFIC AG MONITOR 0.67 NG/ML (< 4.00)
[2023-06-07 11:11] LABS: ALBUMIN 3.9 G/DL (3.2-5.2); ALKALINE PHOSPHATASE 62 U/L (46-116); ALT/SGPT 40 U/L (7.0-40); AST/SGOT 38 U/L (<34); BILIRUBIN,TOTAL 0.5 MG/DL (0.3-1.2); BLOOD UREA NITROGEN 15 MG/DL (9-23); CALCIUM LEVEL 9.1 MG/DL (8.5-10.1); CARBON DIOXIDE LEVEL 29 MMOL/L (20-31); CHLORIDE LEVEL 105 MMOL/L (98-107); CHOLESTEROL LEVEL 198 MG/DL (<200); CHOLESTEROL RISK RATIO 3.95 (<5); CREATININE FOR GFR 0.98 MG/DL (0.70-1.30); GLOMERULAR FILTRATION RATE > 60.0 (>60); GLUCOSE, FASTING 110 MG/DL (60-100); HDL CHOLESTEROL 50.1 MG/DL (>40); LDL CHOLESTEROL 129.1 MG/DL (<100); NON-HDL-C 147.9 MG/DL; POTASSIUM SERUM 4.4 MMOL/L (3.5-5.1); SODIUM LEVEL 140 MMOL/L (136-145); TRIGLYCERIDES LEVEL 94 MG/DL (<150)
[2023-06-07 11:12] LABS: THYROID STIMULATING HORMONE 1.898 uIU/ML (0.55-4.78)
== END ==
LOC: M RAD 09:54
PROVIDERS: ATTEND Family Medicine
DX: Z01.818 Encounter for other preprocedural examination (principal); I10 Essential (primary) hypertension; E03.9 Hypothyroidism, unspecified

== ENCOUNTER 2023-06-22 06:30 | Day surgery (SDC) | payer OTHER ==
[~2023-06-22] VITALS: Ht 175.3 cm; Wt 108.3 kg
[~2023-06-22 06:30] MED LIST changes: +AMPH1TAB2 PO; +CITA20TA7 PO; +COSE1INJ4; +METO1TAB87 PO; +PANT40TA29 PO; +TEST200I14; +ceFAZolin SOD 2 GM in IV 1 EA IV ONE
[2023-06-22] MEDS ORDERED: LIDOCAINE 1% MDV 20ML VIAL As Ordered ONE (06:49)
[2023-06-22] MEDS ORDERED: LR 1,000 ML IV SCH ×2 (06:55→08:25)
[2023-06-22] MEDS ORDERED: propofoL 200 MG/20 ML VIAL As Ordered ONE (07:14)
[2023-06-22] MEDS ORDERED: MIDAZOLAM INJ 2MG/2ML VIAL As Ordered ONE (07:14)
[2023-06-22] MEDS ORDERED: fentaNYL 100 MCG/2 ML INJECTION As Ordered ONE (07:14)
[2023-06-22] MEDS ORDERED: LIDOCAINE 2% 100MG/5ML SDV (FOR ANES.) As Ordered ONE (07:17)
[2023-06-22] MEDS ORDERED: ONDANSETRON 4MG 2ML VIAL As Ordered ONE (07:22)
[2023-06-22] MEDS ORDERED: KETOROLAC 60MG 2ML VIAL As Ordered ONE (08:09)
[2023-06-22] MEDS ORDERED: ONDANSETRON 4MG 2ML VIAL IV PRN (08:25)
[2023-06-22] MEDS ORDERED: HYDROMORPHONE HCL 0.5 MG/ 0.5 ML SYRINGE IV PRN (08:25)
[2023-06-22] MEDS ORDERED: fentaNYL 100 MCG/2 ML INJECTION IV PRN (08:25)
[2023-06-22] MEDS ORDERED: oxyCODONE 5MG TAB PO PRN (08:25)
[2023-06-22] MEDS ORDERED: HYDR-3715 PO (08:32)
[2023-06-22] MEDS ORDERED: CEPH500C PO (08:32)
[2023-06-22 09:30] VITALS: BP 137/89; TEMP 96.8; O2SAT 97
== END 2023-06-22 09:29 | disposition home or self-care (01) ==
LOC: M SDC 06:30
PROVIDERS: ATTEND Urology
DX: Z30.2 Encounter for sterilization (principal); G47.30 Sleep apnea, unspecified; Z88.1 Allergy status to other antibiotic agents; Z87.891 Personal history of nicotine dependence
CPT/HCPCS: 55250; 88302; J0665; J0690; J1100; J1885; J2250; J2405; J3010

== ENCOUNTER → 2024-01-14 | Outpatient (CLI) | payer OTHER ==
[~2024-01-14] MED LIST changes: +CEPH500C PO; +HYDR-3715 PO; -ceFAZolin SOD 2 GM in IV 1 EA IV ONE
[2024-01-14 08:37] LABS: HEMATOCRIT 47.5 % (42.0-52.0); HEMOGLOBIN 16.1 g/dl (13.5-17.5); MEAN CORPUSCULAR HEMOGLOBIN 27.6 pg (27.0-33.0); MEAN CORPUSCULAR HGB CONC 33.9 g/dl (32.0-36.5); MEAN CORPUSCULAR VOLUME 81.5 fl (80.0-96.0); PLATELET COUNT, AUTOMATED 290 10^3/uL (150-450); RED BLOOD COUNT 5.83 10^6/uL (4.30-6.10); WHITE BLOOD COUNT 7.3 10^3/uL (4.0-10.0)
[2024-01-14 09:09] LABS: ALBUMIN 3.6 G/DL (3.2-5.2); ALKALINE PHOSPHATASE 66 U/L (46-116); ALT/SGPT 29 U/L (7.0-40); AST/SGOT 28 U/L (<34); BILIRUBIN,TOTAL 0.6 MG/DL (0.3-1.2); BLOOD UREA NITROGEN 16 MG/DL (9-23); CALCIUM LEVEL 8.8 MG/DL (8.5-10.1); CARBON DIOXIDE LEVEL 28 MMOL/L (20-31); CHLORIDE LEVEL 106 MMOL/L (98-107); CHOLESTEROL LEVEL 203 MG/DL (<200); CHOLESTEROL RISK RATIO 4.57 (<5); GLOMERULAR FILTRATION RATE > 60.0 (>60); GLUCOSE, FASTING 109 MG/DL (60-100); HDL CHOLESTEROL 44.4 MG/DL (>40); LDL CHOLESTEROL 124.6 MG/DL (<100); NON-HDL-C 158.6 MG/DL; POTASSIUM SERUM 4.4 MMOL/L (3.5-5.1); PROSTATIC SPECIFIC AG MONITOR 0.44 NG/ML (< 4.00); SODIUM LEVEL 138 MMOL/L (136-145); TOTAL PROTEIN 7.5 G/DL (5.7-8.2); TRIGLYCERIDES LEVEL 170 MG/DL (<150)
[2024-01-14 09:10] LABS: THYROID STIMULATING HORMONE 0.799 uIU/ML (0.55-4.78); TOTAL 25(OH) VITAMIN D 27.7 NG/ML (20.0-100.0)
[2024-01-14 09:11] LABS: TESTOSTERONE 318 NG/DL (241-827)
[2024-01-14 09:30] LABS: HEMOGLOBIN A1c 5.7 % (4.0-6.0)
== END ==
LOC: M LAB 07:51
PROVIDERS: ATTEND Family Medicine
DX: R53.83 Other fatigue (principal); E03.9 Hypothyroidism, unspecified; I10 Essential (primary) hypertension; D64.9 Anemia, unspecified

== ENCOUNTER → 2024-01-21 | Outpatient (CLI) | payer OTHER | LOC: M SLEEP 20:00 | PROVIDERS: ATTEND Internal Medicine Pulmonary Disease | DX: G47.33 Obstructive sleep apnea (adult) (pediatric) (principal) ==

== ENCOUNTER → 2024-05-02 | Outpatient (CLI) | payer OTHER ==
[~2024-05-02] MED LIST changes: +E-Z-GAS II EFFERVESCENT PACKET (SODIUM BICARB./CITRIC ACID/SIMETHICONE) As Ordered ONE; +E-Z-HD 98% w/w 340GM SUSP BTL As Ordered ONE; +E-Z-PAQUE 96% w/w SUSP 176GM BTL As Ordered ONE
== END ==
LOC: M RAD 07:36
PROVIDERS: ATTEND Family Medicine
DX: R10.9 Unspecified abdominal pain (principal); K80.20 Calculus of gallbladder without cholecystitis without obstruction; K76.0 Fatty (change of) liver, not elsewhere classified; K44.9 Diaphragmatic hernia without obstruction or gangrene

== ENCOUNTER 2024-07-01 10:26 | Emergency (ER) | payer OTHER ==
[~2024-07-01] VITALS: Ht 172.7 cm; Wt 107.4 kg
[~2024-07-01 10:26] MED LIST changes: -E-Z-GAS II EFFERVESCENT PACKET (SODIUM BICARB./CITRIC ACID/SIMETHICONE) As Ordered ONE; -E-Z-HD 98% w/w 340GM SUSP BTL As Ordered ONE; -E-Z-PAQUE 96% w/w SUSP 176GM BTL As Ordered ONE
[2024-07-01] MEDS ORDERED: NAPR220C14 PO (10:38)
[2024-07-01] MEDS ORDERED: PERC5TAB12 PO (13:11)
[2024-07-01 13:28] VITALS: BP 124/70; TEMP 99.1; O2SAT 96
== END 2024-07-01 13:34 | disposition home or self-care (01) ==
LOC: M ED 10:26
DX: S46.001A Unspecified injury of muscle(s) and tendon(s) of the rotator cuff of right shoulder, initial encounter (principal); X58.XXXA Exposure to other specified factors, initial encounter; Y92.9 Unspecified place or not applicable; Y93.9 Activity, unspecified; Y99.9 Unspecified external cause status; F90.9 Attention-deficit hyperactivity disorder, unspecified type; I10 Essential (primary) hypertension; G47.33 Obstructive sleep apnea (adult) (pediatric); Z79.899 Other long term (current) drug therapy; Z88.1 Allergy status to other antibiotic agents

== ENCOUNTER → 2025-06-22 | Outpatient (REF) | payer OTHER ==
[~2025-06-22] MED LIST changes: +NAPR220C14 PO; +PERC5TAB12 PO
[2025-06-22 18:25] LABS: BASO # 0.1 10^3/uL (0.0-0.2); BASO % 1.1 % (0.0-1.0); EOS # 0.2 10^3/uL (0.0-0.5); EOS % 2.5 % (0.0-3.0); LYMPH # 2.5 10^3/uL (1.5-5.0); LYMPH % 35.6 % (24.0-44.0); MONO # 0.7 10^3/uL (0.0-0.8); MONO % 9.2 % (2.0-8.0); NEUTROPHILS # 3.6 10^3/uL (1.5-8.5); NEUTROPHILS % 51.5 % (36.0-66.0); PLATELET COUNT, AUTOMATED 325 10^3/uL (150-450)
[2025-06-22 18:28] LABS: ALT/SGPT 36 U/L (7.0-40); AST/SGOT 29 U/L (<34); CALCIUM LEVEL 9.3 MG/DL (8.5-10.1); CARBON DIOXIDE LEVEL 23 MMOL/L (20-31); CHLORIDE LEVEL 108 MMOL/L (98-107); CREATININE FOR GFR 0.91 MG/DL (0.70-1.30); GLOMERULAR FILTRATION RATE > 90.0 (>56); POTASSIUM SERUM 4.2 MMOL/L (3.5-5.1); SODIUM LEVEL 141 MMOL/L (136-145)
[2025-06-22 18:31] LABS: TESTOSTERONE 270 NG/DL (241-827)
[2025-06-22 18:33] LABS: VITAMIN B12 LEVEL 580 PG/ML (211-911)
== END ==
LOC: M SFHCLERA 09:07
PROVIDERS: ATTEND Internal Medicine
DX: R53.83 Other fatigue (principal); E66.09 Other obesity due to excess calories; F90.8 Attention-deficit hyperactivity disorder, other type

== ENCOUNTER → 2025-07-23 | Outpatient (REF) | payer OTHER ==
[2025-07-23 18:22] LABS: CHOLESTEROL LEVEL 224.0 MG/DL (<200); CHOLESTEROL RISK RATIO 4.4 (<5); LDL CHOLESTEROL 125.7 MG/DL (<100); NON-HDL-C 173.1 MG/DL; TRIGLYCERIDES LEVEL 237.0 MG/DL (<150)
[2025-07-23 18:56] LABS: ESTIMATED AVERAGE GLUCOSE 128.0 MG/DL (60-110)
== END ==
LOC: M SFHCLERA 10:02
PROVIDERS: ATTEND Internal Medicine
DX: E66.09 Other obesity due to excess calories (principal); I10 Essential (primary) hypertension